=== PATIENT | male | born 2000 | race Hispanic/Latino ===

== ENCOUNTER 2024-12-15 13:48 | Emergency (ER) | payer SELFPAY ==
[~2024-12-15] VITALS: Ht 180.3 cm; Wt 104.3 kg
[2024-12-15 14:55] VITALS: BP 141/89; PULSE 93; RESP 18; TEMP 98.9; O2SAT 98
[2024-12-15] MEDS ORDERED: AMOX1TAB16 PO (15:07)
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
[2024-12-15 15:52] LABS: HIV 1&2 ANTIBODY Non-Reactive (Negative)
[2024-12-16 16:35] LABS: HEPATITIS A IGM ANTIBODY Non-Reactive (Nonreactive); HEPATITIS B CORE IGM ANTIBODY Non-Reactive (Negative)
== END 2024-12-15 15:51 | disposition home or self-care (01) ==
LOC: EDH 13:48
DX: S61.452A Open bite of left hand, initial encounter (principal); W50.3XXA Accidental bite by another person, initial encounter; Y93.89 Activity, other specified; Y92.89 Other specified places as the place of occurrence of the external cause; Y99.8 Other external cause status
CPT/HCPCS: 36415; 80074; 86701; 87390; 99283